=== PATIENT | male | born 2000 | race African-American/Black ===

== ENCOUNTER 2021-12-24 21:57 | Inpatient (IN) | payer OTHER ==
[2021-12-24] MEDS ORDERED: SODIUM CHLORIDE 0.9% 500 ML INFUS.BAG IV ONE (22:26)
[2021-12-24 22:43] LABS: BASO % 0.2 % (0-2.0); EOS % 0.7 % (0-4.5); HEMATOCRIT 39.2 % (35.4-49); HEMOGLOBIN 13.2 GM/dL (11.7-16.9); LYMPH % 13.7 % (8-40); MCHC 33.8 g/dl (32.0-35.9); MEAN CELL VOLUME 88.9 fl (80-96); MEAN PLT VOLUME 7.1 fl (7.5-11.1); MONO % 14.5 % (3.8-10.2); NEUT % 70.9 % (42.8-82.8); PLATELET COUNT 303 10^3/uL (134-434); RBC 4.41 M/mm3 (4.00-5.60); RDW 12.9 % (11.9-15.9); WHITE BLOOD COUNT 8.1 K/mm3 (4.0-10.0)
[2021-12-24 23:01] LABS: CALCIUM 8.7 mg/dL (8.5-10.1)
[2021-12-24 23:02] LABS: ALBUMIN 3.5 g/dl (3.4-5.0); BLOOD UREA NITROGEN 10.2 mg/dL (7-18); INR 1.28 (0.83-1.09); MAGNESIUM 2.2 mg/dL (1.8-2.4); PROTHROMBIN TIME (PATIENT) 14.7 SEC (9.7-13.0)
[2021-12-24 23:05] LABS: ACTIVATED PTT 36.4 SECONDS (25.2-36.5); CREATININE 0.9 mg/dL (0.55-1.3)
[2021-12-24 23:07] LABS: BILIRUBIN,TOTAL 0.3 mg/dL (0.2-1)
[2021-12-25] MEDS ORDERED: POLYETHYLENE GLYCOL (HEALTHYLAX) 3350 17 GM PACKET PO ONE (02:00)
[2021-12-25] MEDS ORDERED: POLYETHYLENE GLYCOL (HEALTHYLAX) 3350 17 GM PACKET ONE (02:27)
[2021-12-25] MEDS ORDERED: ENOXAPARIN NA (PORCINE) 40 MG/0.4 ML DISP.SYRIN SQ ONE (03:38)
[2021-12-25] MEDS ORDERED: SODIUM CHLORIDE 1,000 ML IV SCH (03:45)
[2021-12-25] MEDS ORDERED: BISACODYL 5 MG TABLET.DR (FP) PO ONE (07:53)
[2021-12-25 08:01] LABS: HEMATOCRIT 37.3 % (35.4-49); HEMOGLOBIN 12.4 GM/dL (11.7-16.9); MCH 29.5 pg (25.7-33.7); MCHC 33.4 g/dl (32.0-35.9); MEAN CELL VOLUME 88.5 fl (80-96); MEAN PLT VOLUME 7.6 fl (7.5-11.1); PLATELET COUNT 311 10^3/uL (134-434); RBC 4.21 M/mm3 (4.00-5.60); RDW 12.9 % (11.9-15.9); WHITE BLOOD COUNT 8.1 K/mm3 (4.0-10.0)
[2021-12-25 08:44] LABS: ALBUMIN 3.4 g/dl (3.4-5.0); BLOOD UREA NITROGEN 7.4 mg/dL (7-18); CALCIUM 8.5 mg/dL (8.5-10.1); MAGNESIUM 2.1 mg/dL (1.8-2.4)
[2021-12-25 08:46] LABS: CREATININE 0.8 mg/dL (0.55-1.3)
[2021-12-25 08:47] LABS: PHOSPHOROUS 4.8 mg/dL (2.5-4.9)
[2021-12-25 08:48] LABS: TOT PROT 6.5 g/dl (6.4-8.2)
[2021-12-25 11:10] VITALS: BMI 17.0
[2021-12-25] MEDS ORDERED: LORazepam 2 MG/ML SDV VIAL IVPUSH ONE (11:34)
[2021-12-25] MEDS: LORazepam 2 MG/ML SDV VIAL IVPUSH ONE ×4 (14:57→15:41)
[2021-12-25] MEDS: LACTATED RINGERS SOLUTION 1,000 ML/1,000 ML INFUS.BAG IV SCH (16:21)
[2021-12-25] MEDS: POLYETHYLENE GLYCOL (HEALTHYLAX) 3350 17 GM PACKET PO SCH (21:30)
[2021-12-25] MEDS ORDERED: SENNOSIDES 8.6MG TABLET (FP) PO SCH (22:00)
[2021-12-26] MEDS: POLYETHYLENE GLYCOL (HEALTHYLAX) 3350 17 GM PACKET PO SCH ×2 (06:04→13:17)
[2021-12-26] MEDS: LACTATED RINGERS SOLUTION 1,000 ML/1,000 ML INFUS.BAG IV SCH (09:20)
[2021-12-26 09:28] LABS: BASO % 0.6 % (0-2.0); EOS % 0.9 % (0-4.5); HEMATOCRIT 36.3 % (35.4-49); HEMOGLOBIN 12.6 GM/dL (11.7-16.9); LYMPH % 17.6 % (8-40); MCH 30.3 pg (25.7-33.7); MCHC 34.7 g/dl (32.0-35.9); MEAN CELL VOLUME 87.3 fl (80-96); MEAN PLT VOLUME 7.2 fl (7.5-11.1); MONO % 14.5 % (3.8-10.2); NEUT % 66.4 % (42.8-82.8); PLATELET COUNT 314 10^3/uL (134-434); RBC 4.16 M/mm3 (4.00-5.60); RDW 12.8 % (11.9-15.9); WHITE BLOOD COUNT 8.1 K/mm3 (4.0-10.0)
[2021-12-26 10:09] LABS: INR 1.41 (0.83-1.09); PROTHROMBIN TIME (PATIENT) 16.3 SEC (9.7-13.0)
[2021-12-26 10:46] LABS: CALCIUM 8.5 mg/dL (8.5-10.1)
[2021-12-26 10:47] LABS: ALBUMIN 3.2 g/dl (3.4-5.0); BLOOD UREA NITROGEN 8.8 mg/dL (7-18)
[2021-12-26 10:50] LABS: CREATININE 0.8 mg/dL (0.55-1.3)
[2021-12-26 10:51] LABS: BILIRUBIN,TOTAL 0.7 mg/dL (0.2-1); TOT PROT 6.3 g/dl (6.4-8.2)
[2021-12-26] MEDS ORDERED: MINERAL OIL ENEMA 133 ML ENEMA PR ONE (13:25)
[2021-12-26] MEDS ORDERED: PEG 3350/NA SULF BICARB CL/KCL 4000 ML SOLN.RECON PO ONE (14:23)
[2021-12-26] MEDS ORDERED: MINERAL OIL ENEMA 133 ML ENEMA RC ONE (14:23)
[2021-12-26 16:08] VITALS: BP 136/87; PULSE 83; RESP 18; TEMP 98.2
== END 2021-12-26 18:25 | disposition home or self-care (01) | DRG 247 ==
LOC: JER 21:57 → JERBED 12-25 01:47 → OBSVTOIN 12-25 03:36 → J8W 12-25 10:24
PROVIDERS: ADMIT Internal Medicine; ATTEND Internal Medicine
PROC: 0DCP8ZZ Extirpation of Matter from Rectum, Via Natural or Artificial Opening Endoscopic (ICD-10-PCS; 2021-12-26)
PROC: 0DJD8ZZ Inspection of Lower Intestinal Tract, Via Natural or Artificial Opening Endoscopic (ICD-10-PCS; principal; 2021-12-26 10:00)
DX: K56.41 Fecal impaction (principal); K63.3 Ulcer of intestine; F84.0 Autistic disorder; K62.5 Hemorrhage of anus and rectum; R19.7 Diarrhea, unspecified; I44.0 Atrioventricular block, first degree; K64.4 Residual hemorrhoidal skin tags
CPT/HCPCS: 0241U-QW; 36415; 71045-TC-FY; 74177-TC; 80053; 83735; 84100; 84439; 84443; 85025; 85027; 85610; 85730; 86850; 86900; 86901; 93005; 93010; 99285-25; G0378; Q9967

== ENCOUNTER 2023-04-09 04:50 | Inpatient (IN) | payer OTHER ==
[2023-04-09 05:11] VITALS: BMI 18.7
[2023-04-09] MEDS ORDERED: PANTOPRAZOLE SODIUM 40 MG VIAL ONE (06:07)
[2023-04-09] MEDS ORDERED: FAMOTIDINE 20 MG/50 ML IVPB 20 MG/50 ML MG IVPB ONE (06:07)
[2023-04-09] MEDS: PANTOPRAZOLE SODIUM 40 MG VIAL IVPUSH ONE (06:23)
[2023-04-09] MEDS: MAG HYDROX/AL HYDROX/SIMETH 30 ML UNIT-DOSE CUP PO ONE (06:23)
[2023-04-09] MEDS: SODIUM CHLORIDE 0.9% 500 ML INFUS.BAG IV ONE (06:23)
[2023-04-09] MEDS: FAMOTIDINE 20 MG/50 ML IVPB 20 MG/50 ML MG IVPB ONE (06:23)
[2023-04-09 06:33] LABS: INR 1.26 (0.83-1.09); PROTHROMBIN TIME (PATIENT) 14.6 SEC (9.7-13.0)
[2023-04-09 06:36] LABS: ACTIVATED PTT 30.3 SECONDS (25.2-36.5)
[2023-04-09 06:40] LABS: BASO % 0.4 % (0-2.0); EOS % 0.2 % (0-4.5); HEMOGLOBIN 11.4 GM/dL (11.7-16.9); LYMPH % 12.9 % (8-40); MCH 29.6 pg (25.7-33.7); MCHC 33.6 g/dl (32.0-35.9); MEAN CELL VOLUME 88.2 fl (80-96); MEAN PLT VOLUME 7.7 fl (7.5-11.1); MONO % 6.2 % (3.8-10.2); NEUT % 80.3 % (42.8-82.8); PLATELET COUNT 318 10^3/uL (134-434); RBC 3.86 M/mm3 (4.00-5.60); WHITE BLOOD COUNT 15.2 K/mm3 (4.0-10.0)
[2023-04-09 06:59] LABS: ALBUMIN 3.4 g/dl (3.4-5.0); BLOOD UREA NITROGEN 18.7 mg/dL (7-18); CALCIUM 8.1 mg/dL (8.5-10.1)
[2023-04-09] MEDS ORDERED: SUCRALFATE 1 GM TABLET (FP) PO SCH (07:00)
[2023-04-09 07:01] LABS: POTASSIUM 3.9 mmol/L (3.5-5.1)
[2023-04-09 07:02] LABS: CREATININE 1.2 mg/dL (0.55-1.3)
[2023-04-09 07:04] LABS: BILIRUBIN,TOTAL 0.4 mg/dL (0.2-1); TOT PROT 6.5 g/dl (6.4-8.2)
[2023-04-09] MEDS: CIPROFLOXACIN 200 MG/D5W 100 ML IVPB ONE (11:00)
[2023-04-09] MEDS: LACTATED RINGERS SOLUTION 1,000 ML IV SCH (12:03)
[2023-04-09] MEDS: POLYETHYLENE GLYCOL 3350 255 GM BTL PO ONE (15:43)
[2023-04-09] MEDS: CEFTRIAXONE 2 GM in DEXTROSE 5%-WATER 100 ML IVPB SCH (17:50)
[2023-04-10 07:57] LABS: POTASSIUM 3.8 mmol/L (3.5-5.1)
[2023-04-10 08:00] LABS: CALCIUM 8.3 mg/dL (8.5-10.1)
[2023-04-10 08:01] LABS: BLOOD UREA NITROGEN 14.4 mg/dL (7-18)
[2023-04-10 08:04] LABS: CREATININE 0.9 mg/dL (0.55-1.3)
[2023-04-10 09:15] LABS: BASO % 0.9 % (0-2.0); EOS % 0.9 % (0-4.5); HEMATOCRIT 26.1 % (35.4-49); HEMOGLOBIN 8.8 GM/dL (11.7-16.9); LYMPH % 36.4 % (8-40); MCH 29.6 pg (25.7-33.7); MCHC 33.8 g/dl (32.0-35.9); MEAN CELL VOLUME 87.8 fl (80-96); MEAN PLT VOLUME 7.8 fl (7.5-11.1); MONO % 9.7 % (3.8-10.2); NEUT % 52.1 % (42.8-82.8); PLATELET COUNT 226 10^3/uL (134-434); RBC 2.97 M/mm3 (4.00-5.60); RDW 12.8 % (11.9-15.9); WHITE BLOOD COUNT 4.4 K/mm3 (4.0-10.0)
[2023-04-10] MEDS: POLYETHYLENE GLYCOL 3350 255 GM BTL PO ONE (16:26)
[2023-04-11 08:22] LABS: POTASSIUM 3.8 mmol/L (3.5-5.1)
[2023-04-11 08:26] LABS: BLOOD UREA NITROGEN 10.4 mg/dL (7-18)
[2023-04-11 08:34] LABS: BASO % 0.8 % (0-2.0); EOS % 1.6 % (0-4.5); HEMATOCRIT 24.2 % (35.4-49); HEMOGLOBIN 8.4 GM/dL (11.7-16.9); LYMPH % 35.6 % (8-40); MCHC 34.6 g/dl (32.0-35.9); MEAN CELL VOLUME 86.8 fl (80-96); MEAN PLT VOLUME 7.6 fl (7.5-11.1); MONO % 14.6 % (3.8-10.2); NEUT % 47.4 % (42.8-82.8); PLATELET COUNT 224 10^3/uL (134-434); RBC 2.79 M/mm3 (4.00-5.60); RDW 12.7 % (11.9-15.9); WHITE BLOOD COUNT 4.2 K/mm3 (4.0-10.0)
[2023-04-12] MEDS: POLYETHYLENE GLYCOL 3350 255 GM BTL PO ONE (12:23)
[2023-04-13] MEDS: MELATONIN 5 MG TABLETS PO PRN (00:40)
[2023-04-13] MEDS ORDERED: POLYETHYLENE GLYCOL (HEALTHYLAX) 3350 17 GM PACKET PO SCH (14:00)
[2023-04-13] MEDS: POLYETHYLENE GLYCOL (HEALTHYLAX) 3350 17 GM PACKET PO SCH (14:43)
[2023-04-13 15:02] VITALS: RESP 18
[2023-04-13] MEDS: BISACODYL 5 MG TABLET.DR (FP) PO ONE ×2 (17:57→18:02)
[2023-04-14 12:22] LABS: HEMATOCRIT 26.6 % (35.4-49); HEMOGLOBIN 8.8 GM/dL (11.7-16.9); MCH 29.6 pg (25.7-33.7); MEAN CELL VOLUME 89.7 fl (80-96); MEAN PLT VOLUME 7.7 fl (7.5-11.1); PLATELET COUNT 272 10^3/uL (134-434); RBC 2.97 M/mm3 (4.00-5.60); RDW 13.1 % (11.9-15.9); WHITE BLOOD COUNT 4.8 K/mm3 (4.0-10.0)
[2023-04-14 13:18] LABS: POTASSIUM 3.6 mmol/L (3.5-5.1)
[2023-04-14 13:21] LABS: BLOOD UREA NITROGEN 8.6 mg/dL (7-18); CALCIUM 8.1 mg/dL (8.5-10.1)
[2023-04-14 13:24] LABS: CREATININE 0.9 mg/dL (0.55-1.3)
[2023-04-14 13:26] LABS: BILIRUBIN,TOTAL 0.4 mg/dL (0.2-1); TOT PROT 5.6 g/dl (6.4-8.2)
[2023-04-14 15:13] VITALS: BP 124/70; PULSE 83; TEMP 97.5
[2023-04-14] MEDS: LACTULOSE 20 GM/30 ML UDC (FOR ORAL USE ONLY) PO ONE (15:56)
[2023-04-15] MEDS ORDERED: POLYETHYLENE GLYCOL 3350 255 GM BTL PO ONE (10:00)
== END 2023-04-14 20:41 | disposition home health service (06) | DRG 247 ==
LOC: JER 04:50 → JERBED 08:43 → OBSVTOIN 08:43 → J8W 16:32
PROVIDERS: ADMIT Internal Medicine; ATTEND Internal Medicine
PROC: 0DJD8ZZ Inspection of Lower Intestinal Tract, Via Natural or Artificial Opening Endoscopic (ICD-10-PCS; principal; 2023-04-13 12:00)
DX: K56.41 Fecal impaction (principal); K63.3 Ulcer of intestine; F84.0 Autistic disorder; K62.5 Hemorrhage of anus and rectum; D72.829 Elevated white blood cell count, unspecified; K52.89 Other specified noninfective gastroenteritis and colitis
CPT/HCPCS: 0241U-QW; 36415; 74018-TC-FY; 74177-TC; 80048; 80053; 83735; 84443; 85025; 85027; 85610; 85651; 85730; 86850; 86900; 86901; 87040; 93005; 93010; 99285-25; Q9967